=== PATIENT | male | born 1995 | race Caucasian/White ===

== ENCOUNTER 2017-06-01 05:14 | Inpatient (IN) | END 2017-06-04 13:25 | disposition home or self-care (01) | DRG 683 ==

== ENCOUNTER 2018-08-16 21:27 | Emergency (ER) | payer OTHER ==
[~2018-08-16] VITALS: Wt 65.9 kg
[~2018-08-16 21:27] MED LIST: Nicotine (14 Mg/24 Hr) TRANSDERM
[2018-08-17] MEDS ORDERED: IBUP-1561 PO (01:29)
[2018-08-17] MEDS ORDERED: IBUPROFEN 600 MG TAB PO ONE (01:30)
[2018-08-17] MEDS ORDERED: ACET500C5 PO (01:32)
--- NOTE | 2018-08-17 01:44 | ERD ---
ER Documentation Chief Complaint Chief Complaint C/O RECTAL DISCOMFORT, URINARY RETENTION X'S 2 MONTHS HPI 23-year-old male presents with complaint of rectal discomfort for the past 2 months. States that the rectal pain is intermittent and is relieved with hot baths. Denies any blood in his stool. Denies any fevers, chills, nausea, vomiting, diarrhea, dysuria, hematuria, unprotected sex with men. ROS All systems reviewed and are negative except as per history of present illness. Medications Home Meds Active Scripts Acetaminophen* (Tylophen*) 500 Mg Capsule, 2 CAP PO Q8H PRN for PAIN AND OR ELEVATED TEMP, #20 CAP Prov:FREDIDAMI 08/17/18 [Nicotine (14 Mg/24 Hr)] 1 PATCH PATCH No Conflict Check, 1 PATCH TRANSDERM DAILY for 30 Days Prov:ROGER SALAZAR 06/04/17 Allergies Allergies: Coded Allergies: No Known Allergies (Verified Allergy, Unknown, 06/01/17) PMhx/Soc Medical and Surgical Hx: pt denies Medical Hx, pt denies Surgical Hx History of Surgery: No Anesthesia Reaction: No Hx Neurological Disorder: No Hx Respiratory Disorders: No Hx Cardiac Disorders: No Hx Psychiatric Problems: No Hx Miscellaneous Medical Probl: No Hx Alcohol Use: No Hx Substance Use: Yes (marijuana) Hx Tobacco Use: Yes Smoking Status: Current every day smoker Physical Exam Vitals Vital Signs Date Temp Pulse Resp B/P (MAP) Pulse Ox O2 O2 Flow FiO2 Time Delivery Rate 08/16/18 98.4 85 18 134/71 99 21:34 (92) Physical Exam Const: No acute distress Head: Atraumatic Eyes: Normal Conjunctiva ENT: Normal External Ears, Nose and Mouth. Neck: Full range of motion. No meningismus. Resp: Clear to auscultation bilaterally Cardio: Regular rate and rhythm, no murmurs Abd: Soft, non tender, non distended. Normal bowel sounds Skin: No petechiae or rashes Back: No midline or flank tenderness Ext: No cyanosis, or edema Neur: Awake and alert Psych: Normal Mood and Affect Results 24 hrs Current Medications Medications Dose Sig/Brian Start Time Status Last (Trade) Ordered Route PRN Stop Time Admin Dose Reason Admin Ibuprofen 600 mg ONCE ONCE 08/17/18 DC 08/17/18 (Motrin) PO 01:30 08/17/18 01:31 01:31 Procedures/MDM MDM: Patient refused rectal exam. I told patient I cannot definitively rule out prostatitis without doing a rectal exam. Patient understood this and said he just wanted medication for the discomfort. I advised patient that the rectal discomfort could possibly be due to hemorrhoids, anal fissure, or some other cause and this would need to be followed up with his primary care provider. Patient stated that he understood and agreed and told me that he would follow-up with his primary care provider for further work-up. I have low suspicion for perirectal abscess, acute prostatitis, or any emergent conditions at this time. Patient discharged with strict ER precautions. Patient advised to follow up with PMD. All questions answered at discharge. Departure Diagnosis: Primary Impression: Rectal pain Condition: Stable Patient Instructions: Diagnosing Hemorrhoids, Hemorrhoids Referrals: [facility] YOU HAVE RECEIVED A MEDICAL SCREENING EXAM AND THE RESULTS INDICATE THAT YOU DO NOT HAVE A CONDITION THAT REQUIRES URGENT TREATMENT IN THE EMERGENCY DEPARTMENT. FURTHER EVALUATION AND TREATMENT OF YOUR CONDITION CAN WAIT UNTIL YOU ARE SEEN IN YOUR DOCTORS OFFICE WITHIN THE NEXT 1-2 DAYS. IT IS YOUR RESPONSIBILITY TO MAKE AN APPOINTMENT FOR FOLOW-UP CARE. IF YOU HAVE A PRIMARY DOCTOR --you should call your primary doctor and schedule an appointment IF YOU DO NOT HAVE A PRIMARY DOCTOR YOU CAN CALL OUR PHYSICIAN REFERRAL HOTLINE AT IF YOU CAN NOT AFFORD TO SEE A PHYSICIAN YOU CAN CHOSE FROM THE FOLLOWING [facility] [address] [facility]. [facility] [address] [facility]. [facility] [address] [facility]. [facility] [address] [facility]. [facility] [address] [facility]. [facility]. [address] Additional Instructions: FOLLOW UP WITH YOUR PRIMARY CARE PHYSICIAN TOMORROW.Return to this facility if you are not improving as expected. DAMI RAI August 17, 2018 01:44
[2018-08-17 01:47] VITALS: BP 118/67; PULSE 72; RESP 18
== END 2018-08-17 01:49 | disposition home or self-care (01) ==
LOC: FTE 21:27
DX: K62.89 Other specified diseases of anus and rectum (principal); F17.210 Nicotine dependence, cigarettes, uncomplicated
CPT/HCPCS: Z7502; Z7610; 99282

== ENCOUNTER 2018-08-22 09:07 | Emergency (ER) | payer OTHER ==
[~2018-08-22] VITALS: Ht 193 cm; Wt 66.5 kg
[~2018-08-22 09:07] MED LIST changes: +ACET500C5 PO
[2018-08-22 09:13] VITALS: BP 118/70; PULSE 90; RESP 19; Ht 193 cm; Wt 66.5 kg
[2018-08-22] MEDS ORDERED: SOD CHLORIDE 0.9% 1,000 ML IV ONE (10:00)
[2018-08-22] MEDS ORDERED: CIPR500T4 PO (12:06)
[2018-08-22] MEDS ORDERED: ACET500C5 PO (12:06)
--- NOTE | 2018-08-22 15:08 | ERD ---
ER Documentation Chief Complaint Chief Complaint ABDOMINAL PAIN , URINARY PROBLEMS, WEIGHT LOSS HPI 23-year-old male patient with a previous history of acute kidney disease, last year presents the ED stating that he has had a rectal pressure sensation something is wrong with his prostate. Patient denies any vomiting, abdominal pain, chest pain, shortness of breath, dysuria, urgency, frequency, bloody stools. Patient was seen here a few days ago and did not want to have a digital rectal exam. Patient reports that he is lost 20 pounds in the last year, is a concerned about this. Reports that he has been under a lot of stress. ROS All systems reviewed and are negative except as per history of present illness. Medications Home Meds Active Scripts Acetaminophen* (Tylophen*) 500 Mg Capsule, 1 CAP PO Q6H PRN for PAIN AND OR ELEVATED TEMP, #20 CAP Prov:JUSTINE CONNER PA-C 08/22/18 Ciprofloxacin Hcl* (Ciprofloxacin Hcl*) 500 Mg Tablet, 500 MG PO BID for 7 Days, TAB Prov:JUSTINE CONNER PA-C 08/22/18 Acetaminophen* (Tylophen*) 500 Mg Capsule, 2 CAP PO Q8H PRN for PAIN AND OR ELEVATED TEMP, #20 CAP Prov:DAMI RAI 08/17/18 [Nicotine (14 Mg/24 Hr)] 1 PATCH PATCH No Conflict Check, 1 PATCH TRANSDERM DAILY for 30 Days Prov:ROGER SALAZAR 06/04/17 Allergies Allergies: Coded Allergies: No Known Allergies (Verified Allergy, Unknown, 06/01/17) PMhx/Soc Medical and Surgical Hx: pt denies Medical Hx, pt denies Surgical Hx History of Surgery: No Anesthesia Reaction: No Hx Neurological Disorder: No Hx Respiratory Disorders: No Hx Cardiac Disorders: No Hx Psychiatric Problems: No Hx Miscellaneous Medical Probl: No Hx Alcohol Use: No Hx Substance Use: Yes (marijuana) Hx Tobacco Use: Yes Smoking Status: Current every day smoker FmHx Family History: No diabetes, No coronary disease Physical Exam Vitals Vital Signs Date Temp Pulse Resp B/P (MAP) Pulse Ox O2 O2 Flow FiO2 Time Delivery Rate 08/22/18 98.2 90 19 118/70 99 09:13 (86) Physical Exam Const: [id number], well-nourished. In no acute distress. Head: Atraumatic, normocephalic Eyes: Normal Conjunctiva without injection. No purulent discharge. ENT: Normal external ear, nose. Moist oropharynx without tonsillar exudates. Non-erythematous pharynx. Uvula midline. No drooling. No trismus. Neck: No cervical midline tenderness. Full range of motion. No meningismus. No cervical lymphadenopathy. No JVD. Resp: Clear to auscultation bilaterally. No wheezing, rhonchi, rales, or crackles. No accessory muscle use. No retractions. Cardio: Regular rate and rhythm. No murmurs, rubs or gallops. Abd: Soft, nontender, non distended. Normal bowel sounds. No palpable masses. No rebound tenderness. No guarding. Negative McBurney's point. Negative psoas sign. Negative obturator sign. : Deferred Skin: No petechiae or rashes Back: No midline tenderness. No CVA tenderness. Ext: No cyanosis, or edema. Neur: Awake and alert. Normal gait. Normal coordination. Psych: Normal Mood and Affect Results 24 hrs Laboratory Tests Test 08/22/18 10:08 White Blood Count 5.6 10^3/ul Red Blood Count 5.32 10^6/ul Hemoglobin 16.4 g/dl Hematocrit 47.4 % Mean Corpuscular Volume 89.1 fl Mean Corpuscular Hemoglobin 30.8 pg Mean Corpuscular Hemoglobin Concent 34.6 g/dl Red Cell Distribution Width 11.2 % Platelet Count 259 10^3/UL Mean Platelet Volume 9.9 fl Immature Granulocytes % 0.200 % Neutrophils % 54.7 % Lymphocytes % 35.5 % Monocytes % 6.5 % Eosinophils % 2.2 % Basophils % 0.9 % Nucleated Red Blood Cells % 0.0 /100WBC Immature Granulocytes # 0.010 10^3/ul Neutrophils # 3.0 10^3/ul Lymphocytes # 2.0 10^3/ul Monocytes # 0.4 10^3/ul Eosinophils # 0.1 10^3/ul Basophils # 0.1 10^3/ul Nucleated Red Blood Cells # 0.0 10^3/ul Urine Color YELLOW Urine Clarity CLOUDY Urine pH 6.0 Urine Specific [place] 1.027 Urine Ketones NEGATIVE mg/dL Urine Nitrite NEGATIVE mg/dL Urine Bilirubin NEGATIVE mg/dL Urine Urobilinogen 2+ mg/dL Urine Leukocyte Esterase TRACE Stacia/ul Urine Microscopic RBC 1 /HPF Urine Microscopic WBC 21 /HPF Urine Hemoglobin NEGATIVE mg/dL Urine Glucose NEGATIVE mg/dL Urine Total Protein NEGATIVE mg/dl Sodium Level 143 mmol/L Potassium Level 3.9 mmol/L Chloride Level 103 mmol/L Carbon Dioxide Level 30 mmol/L Anion Gap 10 Blood Urea Nitrogen 23 mg/dl Creatinine 0.91 mg/dl Est Glomerular Filtrat Rate mL/min > 60 mL/min Glucose Level 95 mg/dl Calcium Level 9.9 mg/dl Total Bilirubin 1.5 mg/dl Direct Bilirubin 0.00 mg/dl Indirect Bilirubin 1.5 mg/dl Aspartate Amino Transf (AST/SGOT) 17 IU/L Alanine Aminotransferase (ALT/SGPT) 16 IU/L Alkaline Phosphatase 64 IU/L Total Protein 7.8 g/dl Albumin 4.9 g/dl Globulin 2.90 g/dl Albumin/Globulin Ratio 1.68 Lipase 37 U/L Current Medications Medications Dose Sig/Brian Start Time Status Last (Trade) Ordered Route PRN Stop Time Admin Dose Reason Admin Sodium 1,000 ml @ Q1H ONCE 08/22/18 DC 08/22/18 Chloride 1,000 mls/hr IV 10:00 08/22/18 10:11 10:59 Procedures/MDM 23-year-old male patient with a past medical history of kidney disease presents to the ED complaining of rectal fullness. Patient is afebrile and nontoxic- appearing. Based on patient's exam, patient has trace leukocyte esterase and 21 white blood cells, patient will be treated for a urinary tract infection. Patient was strictly instructed to follow-up with urologist since she deferred the rectal exam. Patient was further worked up with CBC, CMP, lipase, UA, urine culture. Patient's pain and symptoms have improved after treatment with 1 L of normal saline. CBC: No leukocytosis. No e/o of systemic infection. No e/o anemia. CMP: No e/o severe acidosis, alkalosis, renal failure, diabetic ketoacidosis, liver disease Lipase within normal limits. Urine: No leukocyte esterase, no nitrites, no hematuria. Patient deferred prostate/rectal exam and exam. Low suspicion for testicular torsion, gastritis, GERD, peptic ulcer disease, cholecystitis, choledocholithiasis, cholangitis, pancreatitis, appendicitis, bowel obstruction, ileus, volvulus, nephrolithiasis, pyelonephritis, hepatitis, perforated viscus, diverticulitis, abdominal hernia, acute abdomen, mesenteric ischemia or other emergent conditions. Diagnosis: Rectal Fullness, UTI Discharge medications: Tylenol,Ciprofloxacin Follow up with primary care physician in 1-2 days for a referral to see a urologist. Instructed patient to return to the ED sooner for any worsening symptoms. Patient's questions were answered. Patient is hemodynamically stable. Patient understood and agreed with discharge plan. Patient discharged stable. Disclaimer: Inadvertent spelling and grammatical errors are likely due to EHR/dictation software use and do not reflect on the overall quality of patient care. Also, please note that the electronic time recorded on this note does not necessarily reflect the actual time of the patient encounter. Departure Diagnosis: Primary Impression: Rectal fullness Additional Impression: Urinary tract infection Urinary tract infection type: site unspecified Hematuria presence: without hematuria Qualified Codes: N39.0 - Urinary tract infection, site not specified Condition: Stable Patient Instructions: Urinary Tract Infections in Men, Stress Relief: Activities, Stress Relief: Relaxation, Stress Relief: A Positive Lifestyle, Stress Relief: Changing Your Response, Prostate Anatomy Referrals: [facility] YOU HAVE RECEIVED A MEDICAL SCREENING EXAM AND THE RESULTS INDICATE THAT YOU DO NOT HAVE A CONDITION THAT REQUIRES URGENT TREATMENT IN THE EMERGENCY DEPARTMENT. FURTHER EVALUATION AND TREATMENT OF YOUR CONDITION CAN WAIT UNTIL YOU ARE SEEN IN YOUR DOCTORS OFFICE WITHIN THE NEXT 1-2 DAYS. IT IS YOUR RESPONSIBILITY TO MAKE AN APPOINTMENT FOR FOLOW-UP CARE. IF YOU HAVE A PRIMARY DOCTOR --you should call your primary doctor and schedule an appointment IF YOU DO NOT HAVE A PRIMARY DOCTOR YOU CAN CALL OUR PHYSICIAN REFERRAL HOTLINE AT IF YOU CAN NOT AFFORD TO SEE A PHYSICIAN YOU CAN CHOSE FROM THE FOLLOWING [facility] [address] [facility]. [facility] [address] [facility]. [facility] [address] [facility]. [facility] [address] [facility]. [facility] [address] [facility]. [facility] [address] [facility]. [facility] YOU HAVE RECEIVED A MEDICAL SCREENING EXAM AND THE RESULTS INDICATE THAT YOU DO NOT HAVE A CONDITION THAT REQUIRES URGENT TREATMENT IN THE EMERGENCY DEPARTMENT. FURTHER EVALUATION AND TREATMENT OF YOUR CONDITION CAN WAIT UNTIL YOU ARE SEEN IN YOUR DOCTORS OFFICE WITHIN THE NEXT 1-2 DAYS. IT IS YOUR RESPONSIBILITY TO MAKE AN APPOINTMENT FOR FOLOW-UP CARE. IF YOU HAVE A PRIMARY DOCTOR --you should call your primary doctor and schedule and appointment IF YOU DO NOT HAVE A PRIMARY DOCTOR YOU CAN CALL OUR PHYSICIAN REFERRAL HOTLINE AT . IF YOU CAN NOT AFFORD TO SEE A PHYSICIAN YOU CAN CHOSE FROM THE FOLLOWING [facility] INSTITUTIONS: [facility] [address] [place] [address] [facility] [address] [place], [place] [id number] [place] [address] [address] [place] [address] [facility] Additional Instructions: Call your primary care doctor TOMORROW for an appointment during the next 2-3 days for a referral to see a urologist for further evaluation and treatment.See the doctor sooner or return here if your condition worsens before your appointment time. JUSTINE CONNER PA-C August 22, 2018 15:08
== END 2018-08-22 12:29 | disposition home or self-care (01) ==
LOC: FTE 09:07
DX: K62.89 Other specified diseases of anus and rectum (principal); F17.210 Nicotine dependence, cigarettes, uncomplicated; N39.0 Urinary tract infection, site not specified
CPT/HCPCS: 80053; 81001; 83690; 85025; J7030; 36415